=== PATIENT | male | born 2000 | race Caucasian/White ===

== ENCOUNTER 2018-11-18 14:23 | Emergency (ER) | payer MEDICAID ==
[2018-11-18 14:33] VITALS: PULSE 64; RESP 18; TEMP 98.1
[2018-11-18 15:36] LABS: URINE BILIRUBIN NEGATIVE (NEGATIVE); URINE BLOOD NEGATIVE (NEGATIVE); URINE CLARITY Clear (Clear); URINE COLOR Yellow (YELLOW); URINE GLUCOSE (UA) NORMAL (Normal); URINE LEUKOCYTE ESTERASE NEG Leu/uL (Negative); URINE PROTEIN NEGATIVE (NEGATIVE)
--- NOTE | 2018-11-18 15:38 | C.PDOC ---
History Of Present Illness 17 year old male presents to ED with complaint of right lower quadrant abdominal pain for the past 2 days. Patient states that he also feels numbness when he lays on his left side. Patient states that the pain is worse with movement. Upon further questioning, patient also complains of pressure to his inguinal region and right sided testicular pain. He denies a PSHx of abdominal surgeries. He denies fever, vomiting, diarrhea, back pain, and GI bleeding. Time Seen by Provider: 11/18/18 14:45 Chief Complaint (Nursing): Abdominal Pain History Per: Patient History/Exam Limitations: no limitations Onset/Duration Of Symptoms: Days (2) Current Symptoms Are (Timing): Still Present Location Of Pain/Discomfort: RLQ Radiation Of Pain To:: None Quality Of Discomfort: "Pain" Associated Symptoms: Other (numbness). denies: Fever, Vomiting, Diarrhea, Back Pain Exacerbating Factors: Movement Alleviating Factors: None Past Medical History Reviewed: Historical Data, Nursing Documentation, Vital Signs Vital Signs: Last Vital Signs Temp 98.1 F 11/18/18 14:25 Pulse 64 11/18/18 14:25 Resp 18 11/18/18 14:25 BP 136/70 11/18/18 14:25 Pulse Ox 98 11/18/18 14:25 - Medical History PMH: Asthma, Fractures (left forearm fx 2010- repair) Surgical History: No Surg Hx Family History: States: Unknown Family Hx - Social History Hx Tobacco Use: No Hx Alcohol Use: Yes (OCCASIONALLY) Hx Substance Use: Yes (OCCASIONALLY) - Immunization History Hx Tetanus Toxoid Vaccination: Yes Hx Influenza Vaccination: Yes Hx Pneumococcal Vaccination: No Review Of Systems Constitutional: Negative for: Fever Gastrointestinal: Negative for: Vomiting, Diarrhea, Hematochezia Genitourinary: Negative for: Dysuria, Hematuria Musculoskeletal: Negative for: Back Pain Physical Exam - Physical Exam Appears: Non-toxic, No Acute Distress Skin: Normal Color, Warm, Dry, No Rash Head: Atraumatic, Normacephalic Eye(s): bilateral: Normal Inspection, PERRL, EOMI Nose: Normal Oral Mucosa: Moist Throat: No Erythema, No Exudate Neck: Normal ROM, Supple Chest: Symmetrical, No Deformity Cardiovascular: Rhythm Regular, No Murmur, Other (bradycardic) Respiratory: Normal Breath Sounds, No Rales, No Rhonchi, No Stridor, No Wheezing Gastrointestinal/Abdominal: Bowel Sounds (active), Soft, Tenderness (mild right lower quadrant), No Guarding, No Rebound Back: Normal Inspection, No CVA Tenderness Male Genital: Testicular Tenderness (right testicle), No Testicular Swelling, No Scrotal Swelling, No Other (erythema, rash. Demolitionist: Kristian Perez medical imaging technologist) Extremity: Normal ROM, Capillary Refill (<2 seconds), No Swelling Neurological/Psych: Oriented x3, Normal Speech, Normal Cognition, Normal Motor ED Course And Treatment - Laboratory Results Result Diagrams: 11/18/18 16:11 11/18/18 16:11 O2 Sat by Pulse Oximetry: 98 (in RA) Pulse Ox Interpretation: Normal - CT Scan/US Testicular US Other Rad Studies (CT/US): Interpreted By Me, Read By Radiologist CT/US Interpretation: IMPRESSION: Small bilateral epididymal cysts-spermatoce les. Small bilateral hydroceles. Findings also suggest tiny bilateral varicoceles. Medical Decision Making Medical Decision Making: Plan: Testicular US ordered for patient Labs with CMP, CBC, and UA LABS AND UA ARE NORMAL. Case was discussed with Dr. Crowell (radiology) who states that the CT scan could equivocal for possible appendicitis but is difficu lt to determine at this time. Coorelate clinically On re-exam, the patient reports improvement of symptoms and has no pain at this time. Lungs are CTA, heart is RRR, abdomen is soft, non-tender, no guarding, and tolerating PO well. Pt is ambulatory in the ED with steady gait. Pt states that he wants to go home and will return to the ED within 12 hours for re-evaluation as there is still a chance for appendicitis. Disposition - Disposition Disposition: HOME/ ROUTINE Disposition Time: 18:50 Condition: IMPROVED Additional Instructions: YOUR CT SCAN WAS INCONCLUSIVE FOR POSSIBLE APPENDICITIS. RETURN TO THE ED WITHIN 6-12 HOURS FOR RE-EVAL THERE COULD BE POSSIBLE APPENDICITIS WITHOUT FAIL Instructions: Acute Abdomen (Belly Pain), Adult (DC) Forms: School Excuse, Work Excuse - Clinical Impression Clinical Impression: Abdominal pain - PA / MEDICINE TECHNOLOGIST / Resident Statement MD/DO has reviewed & agrees with the documentation as recorded. (Nataliia Huddleston) - Scribe Statement The provider has reviewed the documentation as recorded by the Scribe (Nataliia Huddleston) All medical record entries made by the Scribe were at my direction and personally dictated by me. I have reviewed the chart and agree that the record accurately reflects my personal performance of the history, physical exam, medic al decision making, and the department course for this patient. I have also personally directed, reviewed, and agree with the discharge instructions and disposition.
[2018-11-18 16:17] LABS: BASO # 0.1 K/uL (0.0-0.2); BASO % 1.1 % (0.0-2.0); EOS # 0.1 K/uL (0.0-0.7); EOS % 1.8 % (0.0-4.0); HEMOGLOBIN 14.8 g/dL (12.0-18.0); LYMPH # 1.9 K/uL (1.0-4.3); LYMPH % 31.9 % (20.0-40.0); MEAN CORPUSCULAR HEMOGLOBIN 26.8 pg (27.0-31.0); MEAN CORPUSCULAR HGB CONC 33.1 g/dL (33.0-37.0); MEAN PLATELET VOLUME 9.8 fL (7.2-11.7); MONO # 0.5 K/uL (0.0-0.8); MONO % 9.3 % (0.0-10.0); NEUT # 3.3 K/uL (1.8-7.0); NEUT % 55.9 % (50.0-75.0); RBC 5.51 Mil/uL (4.40-5.90); RED CELL DISTRIBUTION WIDTH 14.2 % (11.5-14.5); WHITE BLOOD COUNT 5.9 K/uL (4.8-10.8)
[2018-11-18 16:35] LABS: ALB/GLOB RATIO 1.6 (1.0-2.1); ALBUMIN 4.7 g/dL (3.5-5.0); ALT/SGPT 17 U/L (21-72); AST/SGOT 23 U/L (17-59); BLOOD UREA NITROGEN 12 mg/dL (9-20); CALCIUM 9.7 mg/dl (8.6-10.4); GFR NON-AFRICAN AMERICAN > 60; LIPASE 77 U/L (23-300)
[2018-11-18] MEDS ORDERED: Iodixanol 320 MG/ML 100 ML BOTTLE IV ONE (17:30)
--- NOTE | 2018-11-18 17:31 | US ---
Date of service: 11/18/2018 HISTORY: Scrotal pain TECHNIQUE: Realtime sonography through the scrotum with color and doppler flow. COMPARISON: None Available. FINDINGS: RIGHT TESTICLE: Measures 4.1 x 2.3 x 2.9 cm. Normal echotexture and flow. RIGHT EPIDIDYMIS: Epididymal head measures 1.1 x 1.0 x 1.3 cm. Grossly unremarkable appearance with normal flow.. There is a small epididymal cyst-spermatocele measuring 3.4 x 2.2 x 3.4 mm with a 2nd cyst-spermatocele measuring 2.7 mm in greatest dimension.. LEFT TESTICLE: Measures cm. Normal echotexture and flow. LEFT EPIDIDYMIS: Epididymal head measures 1.6 x 0.74 x 1.5 cm. Grossly unremarkable appearance with normal flow. Small epididymal cyst/spermatocele largest measuring 5.6 x 4.1 x 5.1 mm. The a this is a pectus HYDROCELE: Small bilateral hydroceles VARICOCELE: Also suggest tiny bilateral varicoceles. OTHER FINDINGS: None. IMPRESSION: Small bilateral epididymal cysts-spermatoceles. Small bilateral hydroceles. Findings also suggest tiny bilateral varicoceles.
--- NOTE | 2018-11-18 18:42 | CT ---
Date of service: 11/18/2018 PROCEDURE: CT abdomen and pelvis. HISTORY: Right lower quadrant abdominal pain., COMPARISON: No prior study available for comparison TECHNIQUE: Contiguous axial images of the abdomen and pelvis. Oral contrast was administered. No IV contrast given. Coronal and Sagittal reformats generated. Radiation dose: Total exam DLP = 908.67 mGy-cm. This CT exam was performed using one or more of the following dose reduction techniques: Automated exposure control, adjustment of the mA and/or kV according to patient size, and/or use of iterative reconstruction technique. FINDINGS: LOWER THORAX: Lung bases clear. No infiltrate effusion or basilar pneumothorax. Heart size within range of normal. No significant pericardial effusion. There is a small hiatal hernia. LIVER: Liver is upper limits of normal in size measuring approximately 18.5 cm in cc dimension. No obvious hepatic mass collection or calcification. Portal and splenic veins are opacified. GALLBLADDER AND BILE DUCTS: Gallbladder is physiologically distended. No evidence of intraluminal gallbladder calculi. PANCREAS: Unremarkable. No mass. No ductal dilatation. SPLEEN: Spleen is mildly enlarged measuring over 15 cm in AP dimension. No splenic masses collections or calcifications. ADRENALS: No adrenal lesions. KIDNEYS AND URETERS: Exhibit symmetric nephrograms. No evidence of nephrolithiasis or hydronephrosis. No obvious renal masses or collections. BLADDER: The urinary bladder is appears incompletely distended which presumably accounts for slight thick-walled appearance. Muscular hypertrophy may contribute.. No evidence of intraluminal urinary bladder calculi. REPRODUCTIVE: Unremarkable APPENDIX: The appendix measures up to approximately 8.5 mm with asymmetric slight wall thickening. Air and debris present throughout the appendix. These findings are equivocal and the possibility of a very early acute appendicitis must be considered. Correlation with history physical exam and laboratory values. BOWEL: Evaluation of the bowel is somewhat limited due to the lack of oral contrast material. The stomach is distended with food debris liquid and air. Visualized loops of small bowel exhibit normal contour and caliber. No evidence of acute mechanical small bowel obstruction. Stool and air seen throughout the large bowel. No definitive evidence of abnormal mural wall thickening. PERITONEUM: Unremarkable. No fluid collection. No free air. LYMPH NODES: Unremarkable. No enlarged lymph nodes. VASCULATURE: Unremarkable. No aortic aneurysm. No aortic atherosclerotic calcification or mural plaque present. BONES: No acute compression fractures no retropulsed fragments. Vertebral bodies exhibit relatively normal stature. OTHER FINDINGS: None. IMPRESSION: Splenomegaly. There is mild asymmetric dilatation of the appendix measuring up to 8.5 mm with slight thickened enhancing wall. Findings are equivocal for early acute appendicitis. Clinical correlation with history physical exam and laboratory values recommended as the possibility of a very early acute appendicitis must be considered.. Surgical consultation is recommended. Findings discussed with emergency room [facility] at approximately 6:37 p.m. with written down and read back verification.
[2018-11-18 19:02] VITALS: BP 122/67; O2SAT 100
== END 2018-11-18 19:05 | disposition home or self-care (01) ==
LOC: C.ER 14:23
DX: R10.31 Right lower quadrant pain (principal); N43.40 Spermatocele of epididymis, unspecified
CPT/HCPCS: 74177; 76870; 80053; 81001; 83690; 85025; 99284; Q9967